=== PATIENT | male | born 2000 | race Caucasian/White ===

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

== ENCOUNTER 2024-03-21 07:01 | Day surgery (SDC) | payer BC ==
[2024-03-21] MEDS: Lactated Ringers 1,000 ML IV SCH (07:27)
[2024-03-21] MEDS ORDERED: DIPRIVAN 200 MG/20 ML IV ONE (08:01)
[2024-03-21 08:23] VITALS: TEMP 98.6
[2024-03-21 08:40] VITALS: O2SAT 98
[2024-03-21 08:46] VITALS: BP 136/70; PULSE 62; RESP 16
--- NOTE | 2024-03-21 13:11 | OP ---
SURGERY DATE/TIME: 03/21/2024 0757 PREOPERATIVE DIAGNOSIS: Rectal bleeding. POSTOPERATIVE DIAGNOSIS: Normal colon. PROCEDURE: Colonoscopy. SURGEON: Dr. Becerra. ANESTHESIA: Medications given by anesthesia department. HISTORY: The patient is a 23-year-old white male patient who presents now for problems with rectal bleeding. The patient was felt the need to have endoscopic examination. He was appraised of the risks of the procedure including the risk of perforation, phlebitis, untoward reaction to medication, bleeding and missed lesions. The patient verbalized his understanding and desired to have the procedure performed. DESCRIPTION OF PROCEDURE: The patient was given the medications by the anesthesia department. He had continuous pulse oximetry, ECG monitoring and intermittent blood pressure monitoring during the examination. He was placed in the left lateral decubitus position. Digital rectal examination was performed and revealed normal anal sphincter tone, no masses and the prostate was normal. The flexible Olympus pediatric colonoscope was used to intubate the rectum. A view of the colon was developed to the cecum including approximately 20 cm in the terminal ileum. Upon insertion and withdrawal, including a retroflex view in the rectum, no mucosal lesions were encountered. The scope was removed from the patient who tolerated the procedure well and was sent back to OP recovery in good condition. The prep was noted to be fair to good.
== END 2024-03-21 08:47 | disposition home or self-care (01) ==
LOC: SDC 07:01
PROVIDERS: ATTEND Family Medicine
DX: K62.5 Hemorrhage of anus and rectum (principal)
CPT/HCPCS: J2704